=== PATIENT | female | born 2000 | race Caucasian/White ===

== ENCOUNTER 2022-06-25 10:09 | Day surgery (SDC) | payer OTHER ==
[2022-06-24 08:42] VITALS: BMI 33.0
[~2022-06-25 10:09] MED LIST: LACTATED RINGERS 1,000 ML IV SCH
[2022-06-25] MEDS ORDERED: LACTATED RINGERS 1,000 ML IV ONE (11:57)
[2022-06-25 12:07] VITALS: RESP 18; TEMP 97.9
[2022-06-25] MEDS ORDERED: PROPOFOL 10 MG/ML 20 ML VIAL IV ONE (12:33)
[2022-06-25] MEDS ORDERED: fentaNYL (PF) 50 MCG/ML 2 ML AMP ONE (12:33)
[2022-06-25] MEDS ORDERED: MIDAZOLAM 2 MG/2 ML VIAL ONE (12:33)
--- NOTE | 2022-06-25 12:46 | P.PCN ---
Date of Procedure: 06/25/22 Procedure(s) Performed: BRIEF HISTORY: Patient is a 22-year-old pleasant white female scheduled for an elective colonoscopy as a part of lower abdominal pain and chronic diarrhea for the last few months duration. She also has intermittent episodes of nausea vomiting. PROCEDURE PERFORMED: Colonoscopy with random biopsies. PREOPERATIVE DIAGNOSIS: Change in bowel habits. IV sedation per Anesthesia. PROCEDURE: After informed consent was obtained, the patient, was brought into the endoscopy unit. IV sedation was administered by Anesthesia under continuous monitoring. Digital rectal examination was normal. Initially the Olympus CF-160 flexible video colonoscope was then inserted in the rectum, gradually advanced into the cecum without any difficulty. Careful examination was performed as the scope was gradually being withdrawn. Ileocecal valve and the appendiceal orifice were visualized and appeared normal. Terminal ileum was intubated and 20 cm visualized and appeared normal. Prep was excellent. Mucosa of the cecum, ascending colon, transverse colon, descending colon, sigmoid colon, and rectum appeared normal. Random biopsies were done from ascending and descending colon to rule out microscopic/collagenous colitis. Retroflexion was performed in the rectum and no lesions were seen. The patient tolerated the procedure well. IMPRESSION: Normal-appearing colon from rectum to cecum with no evidence of colorectal neoplasia . RECOMMENDATIONS: Findings of this examination were discussed with the patient and family. She was advised to follow with the biopsy results.. Recommend obtaining serology for celiac disease and trial of dicyclomine as needed for her symptoms. She was advised to follow with Dr. Lantigua.
[2022-06-25 13:07] VITALS: BP 115/75; PULSE 51
== END 2022-06-25 13:21 | disposition home or self-care (01) ==
LOC: ORWHC2ENDO 10:09
PROVIDERS: ATTEND Internal Medicine Gastroenterology
DX: K52.9 Noninfective gastroenteritis and colitis, unspecified (principal); K63.89 Other specified diseases of intestine
CPT/HCPCS: 81025; 88305; 45380; J2250; J3010; J2704